=== PATIENT | female | born 1990 | race Caucasian/White ===

== ENCOUNTER 2017-01-09 10:40 | Inpatient (IN) | payer OTHER ==
[~2017-01-09] VITALS: Ht 162.6 cm; Wt 87.7 kg
[2017-01-13] MEDS: OXYTOCIN 30U/ 0.9% NaCL 500ML 500 ML IV SCH ×2 (05:39→15:39)
[2017-01-13] MEDS ORDERED: METOCLOPRAMIDE 5 MG/ML, 2ML IV ONE (06:00)
[2017-01-13] MEDS ORDERED: SODIUM CITRATE/CITRIC ACID 30 ML UDC PO ONE (06:00)
[2017-01-13] MEDS: LACTATED RINGERS 1,000 ML IV SCH ×12 (06:00→23:18)
[2017-01-13] MEDS ORDERED: LACTATED RINGERS 1,000 ML IVBOLUS ONE (06:00)
[2017-01-13 06:14] LABS: HEMATOCRIT 35.8 % (34.6-47.8); HEMOGLOBIN 11.6 g/dL (11.7-16.4); WHITE BLOOD COUNT 7.9 x10^3/uL (3.4-10)
[2017-01-13] MEDS ORDERED: FENTANYL PF 100 MCG/2ML ONE ×4 (06:49→23:18)
[2017-01-13] MEDS: FENTANYL PF 100 MCG/2ML IVPush PRN ×2 (06:55→08:54)
[2017-01-13] MEDS ORDERED: AMPICILLIN 2 GM in SODIUM CHLORIDE 0.9% 100 ML IVPB STA (07:18)
[2017-01-13] MEDS ORDERED: OXYTOCIN 30U/ 0.9% NaCL 500ML 500 ML IV ONE (07:18)
[2017-01-13] MEDS ORDERED: FENTANYL PF 100 MCG/2ML IV PRN (07:30)
[2017-01-13] MEDS ORDERED: CALCIUM CARBONATE 500 MG TAB.CHEW PO PRN ×2 (07:30→23:30)
[2017-01-13] MEDS ORDERED: ONDANSETRON 2MG/ML, 2ML IVPush PRN ×2 (07:30→10:30)
[2017-01-13] MEDS ORDERED: BUPIVACAINE 0.25% ONE (08:49)
[2017-01-13] MEDS ORDERED: FENTANYL/BUPIV./NS/PF 250 ML EPIDCONT ONE (08:50)
[2017-01-13] MEDS ORDERED: FENTANYL/BUPIV./NS/PF 250 ML EPIDCONT SCH (10:23)
[2017-01-13] MEDS ORDERED: EPHEDRINE 50 MG/ML, 1ML IVPush PRN (10:30)
[2017-01-13] MEDS ORDERED: LACTATED RINGERS 1,000 ML IVBOLUS PRN (10:30)
[2017-01-13] MEDS: AMPICILLIN 1 GM in SODIUM CHLORIDE 0.9% 50 ML IVPB SCH ×5 (11:29→23:30)
[2017-01-13] MEDS ORDERED: NEWBORN KIT ONE (13:51)
[2017-01-13] MEDS ORDERED: LIDOCAINE 1%, 20ML ONE ×2 (13:51→13:52)
[2017-01-13] MEDS ORDERED: OXYTOCIN 30U/ 0.9% NaCL 500ML 500 ML ONE (13:52)
[2017-01-13] MEDS ORDERED: MISOPROSTOL 200 MCG TABLET ONE (13:52)
[2017-01-13] MEDS: D5%-LACTATED RINGERS 1,000 ML IV SCH ×3 (15:18→23:18)
[2017-01-13] MEDS ORDERED: ACETAMINOPHEN 325 MG TABLET ONE (21:56)
[2017-01-13] MEDS ORDERED: METOCLOPRAMIDE 5 MG/ML, 2ML ONE (22:22)
[2017-01-13] MEDS ORDERED: SODIUM CITRATE/CITRIC ACID 30 ML UDC ONE (22:22)
[2017-01-13] MEDS ORDERED: morphine SULFATE 10 MG/ML, 1ML IVPush PRN ×2 (23:30)
[2017-01-13] MEDS ORDERED: ONDANSETRON 2MG/ML, 2ML IV PRN (23:30)
[2017-01-13] MEDS ORDERED: METHYLERGONOVINE 0.2 MG/ML IM PRN (23:30)
[2017-01-13] MEDS ORDERED: MISOPROSTOL 200 MCG TABLET PR PRN (23:30)
[2017-01-13] MEDS ORDERED: ACETAMINOPHEN 325 MG TABLET PO PRN (23:30)
[2017-01-13] MEDS ORDERED: OXYcodone/APAP 5/325MG TABLET PO PRN (23:30)
[2017-01-13] MEDS ORDERED: KETOROLAC 30 MG/1 ML IV PRN (23:30)
[2017-01-13] MEDS ORDERED: LIDOCAINE-MPF 2% ,5ML ONE (23:34)
[2017-01-13] MEDS ORDERED: OXYTOCIN 10 UNITS/ML, 1ML ONE (23:34)
[2017-01-13] MEDS ORDERED: EPHEDRINE 50 MG/ML, 1ML ONE (23:34)
[2017-01-13] MEDS ORDERED: PHENYLEPHRINE 10 MG/ML ONE (23:34)
[2017-01-13] MEDS ORDERED: CEFAZOLIN 1,000 MG ONE (23:34)
[2017-01-13] MEDS ORDERED: BUPIVACAINE/PF 0.25% ONE (23:34)
[2017-01-13] MEDS ORDERED: WATER-INJECTION,STERILE 10 ML IV ONE (23:34)
[2017-01-13] MEDS ORDERED: morphine SULFATE/PF 1 MG/ML, 10ML ONE (23:38)
[2017-01-14] MEDS ORDERED: KETOROLAC 30 MG/1 ML ONE (00:53)
[2017-01-14] MEDS: KETOROLAC 30 MG/1 ML IV PRN ×3 (00:56→14:36)
[2017-01-14] MEDS: OXYTOCIN 30U/ 0.9% NaCL 500ML 500 ML IV SCH ×2 (00:58→09:17)
[2017-01-14 01:45] VITALS: BP 122/73
[2017-01-14 05:30] VITALS: BP 120/67
[2017-01-14] MEDS: LACTATED RINGERS 1,000 ML IV SCH ×3 (07:17→15:17)
[2017-01-14] MEDS: DOCUSATE 100 MG CAPSULE PO PRN (07:33)
[2017-01-14 07:55] VITALS: BP 120/67
[2017-01-14 08:06] LABS: HEMATOCRIT 28.6 % (34.6-47.8); HEMOGLOBIN 9.3 g/dL (11.7-16.4); WHITE BLOOD COUNT 11.6 x10^3/uL (3.4-10)
[2017-01-14] MEDS: PRENATAL VIT/IRON/FA 1 EACH TABLET PO SCH (09:00)
[2017-01-14 15:00] VITALS: BP 114/67
[2017-01-14 20:00] VITALS: BP 111/61
[2017-01-14] MEDS ORDERED: DIPH,PERTUSS(ACELL),TET VAC/PF NC IM-VACC ONE ×2 (21:12→21:30)
[2017-01-15] MEDS: IBUPROFEN 600 MG TABLET PO PRN ×3 (06:32→18:42)
[2017-01-15] MEDS: OXYcodone/APAP 5/325MG TABLET PO PRN ×3 (06:32→18:41)
[2017-01-15] MEDS ORDERED: SIMETHICONE 80 MG CHEW TAB PO PRN (07:00)
[2017-01-15 07:40] VITALS: BP 126/73
[2017-01-15] MEDS: DOCUSATE 100 MG CAPSULE PO PRN (12:23)
[2017-01-15] MEDS: PRENATAL VIT/IRON/FA 1 EACH TABLET PO SCH (12:23)
[2017-01-15 19:15] VITALS: BP 121/74
[2017-01-16] MEDS: DOCUSATE 100 MG CAPSULE PO PRN ×2 (00:13→08:39)
[2017-01-16] MEDS: OXYcodone/APAP 5/325MG TABLET PO PRN ×2 (00:13→06:36)
[2017-01-16] MEDS: IBUPROFEN 600 MG TABLET PO PRN ×2 (00:14→06:36)
[2017-01-16 08:35] VITALS: BP 118/73
[2017-01-16] MEDS: PRENATAL VIT/IRON/FA 1 EACH TABLET PO SCH (08:39)
[2017-01-16] MEDS ORDERED: OXYC-302 PO (10:18)
[2017-01-16] MEDS ORDERED: IBUP-1223 PO (10:19)
[2017-01-16] MEDS ORDERED: DOCU-131 PO (10:20)
== END 2017-01-16 12:09 | disposition home or self-care (01) | DRG 765 ==
LOC: LDIP 01-13 05:31 → 2NW 01-14 01:21
PROVIDERS: ADMIT Obstetrics & Gynecology; ATTEND Obstetrics & Gynecology
PROC: 10D00Z1 Extraction of Products of Conception, Low, Open Approach (ICD-10-PCS; principal; 2017-01-14)
DX: O34.211 Maternal care for low transverse scar from previous cesarean delivery (principal); O10.92 Unspecified pre-existing hypertension complicating childbirth; O99.824 Streptococcus B carrier state complicating childbirth; O62.2 Other uterine inertia; O90.81 Anemia of the puerperium; D64.9 Anemia, unspecified; Z3A.40 40 weeks gestation of pregnancy; Z37.0 Single live birth
CPT/HCPCS: 36415; 85025; 86850; 86900; 86923; 90715; J0290; J0690; J1885; J2274; J3010; J3490; J2370; J2590; J2765; J7120; J7121